=== PATIENT | female | born 1990 | race Caucasian/White ===

== ENCOUNTER 2016-10-14 11:38 | Emergency (ER) | payer SELFPAY ==
[~2016-10-14] VITALS: Ht 165.1 cm; Wt 104.3 kg
[2016-10-14 12:27] LABS: BASO % 0 % (0-3); EOS % 1 % (0-3); HEMATOCRIT 40.4 % (36.0-47.0); HEMOGLOBIN 13.7 g/dL (12.0-15.5); LYMPH # 1.3 x10^3/uL (1.0-4.8); LYMPH % 14 % (24-48); MEAN CORPUSCULAR HEMOGLOBIN 31 pg (25-35); MEAN CORPUSCULAR HGB CONC 34 g/dL (31-37); MEAN CORPUSCULAR VOLUME 92 fL (79-100); MONO % 5 % (0-9); NEUT % 80 % (31-73); PLATELET COUNT 271 x10^3/uL (140-400); RED CELL DISTRIBUTION WIDTH 13.6 % (11.5-14.5); WHITE BLOOD COUNT 9.7 x10^3/uL (4.0-11.0)
[2016-10-14] MEDS ORDERED: CONTRAST GIVEN MC PRN (12:30)
[2016-10-14] MEDS ORDERED: ONDANSETRON PF 4 MG/2 ML VIAL. IV ONE (12:30)
[2016-10-14] MEDS ORDERED: diphenhydrAMINE 50 MG/ML VIAL IVP ONE (12:30)
[2016-10-14] MEDS ORDERED: IOHEXOL 300 MG/ML 75 ML VIAL IV ONE (12:30)
[2016-10-14] MEDS ORDERED: IV NORMAL SALINE 500ML BAG 500 ML IV ONE (12:30)
[2016-10-14] MEDS ORDERED: KETOROLAC TROMETHAMINE 30 MG/ML INJ. IV ONE (12:30)
--- NOTE | 2016-10-14 12:33 | PHYS DOC ---
Past Medical History Past Medical History: No Pertinent History Past Surgical History: Cholecystectomy, Other Additional Past Surgical Histo: R ANKLE, R KNEE Alcohol Use: None Drug Use: None Adult General Chief Complaint Chief Complaint: HEADACHE HPI HPI Patient is a 26 year old female who presents with one-day history of sore throat and neck swelling with mild headache gradual onset not worst of life, some bilateral ear pain dry cough. Reports history of thyroid problem but doesn' t know specifics. Denies dental pain. Able to speak normally and swallow secretions normally. Review of Systems Review of Systems Constitutional: Denies fever or chills [] Eyes: Denies change in visual acuity, redness, or eye pain [] HENT: Denies nasal congestion or sore throat [] Respiratory: Denies cough or shortness of breath [] Cardiovascular: No additional information not addressed in HPI [] GI: Denies abdominal pain, nausea, vomiting, bloody stools or diarrhea [] : Denies dysuria or hematuria [] Musculoskeletal: Denies back pain or joint pain [] Integument: Denies rash or skin lesions [] Neurologic: Denies headache, focal weakness or sensory changes [] Endocrine: Denies polyuria or polydipsia [] Current Medications Current Medications Current Medications Medications (Trade) Dose Ordered Sig/Gui Start Time Stop Time Status Last Admin Dose Admin Diphenhydramine HCl (Benadryl) 25 mg 1X ONCE 10/14/16 12:30 10/14/16 12:31 DC 10/14/16 12:35 25 MG Info (Do NOT chart on this entry -- for MONITORING) 1 each PRN DAILY PRN 10/14/16 12:30 10/14/16 15:10 DC Iohexol (Omnipaque 300 Mg/ml) 75 ml 1X ONCE 10/14/16 12:30 10/14/16 12:31 DC 10/14/16 13:00 75 ML Ketorolac Tromethamine (Toradol) 30 mg 1X ONCE 10/14/16 12:30 10/14/16 12:31 DC 10/14/16 12:35 30 MG Ondansetron HCl (Zofran) 4 mg 1X ONCE 10/14/16 12:30 10/14/16 12:31 DC 10/14/16 12:34 4 MG Sodium Chloride 500 ml @ 500 mls/hr 1X ONCE 10/14/16 12:30 10/14/16 13:29 DC 10/14/16 12:35 500 MLS/HR Allergies Allergies Allergies Coded Allergies Type Severity Reaction Last Updated Verified codeine Allergy Unknown Hives 10/14/16 Yes Physical Exam Physical Exam Constitutional: Well developed, well nourished, no acute distress, non-toxic appearance. [] HENT: Normocephalic, atraumatic, bilateral external ears normal, oropharynx moist, no oral exudates but with tonsillar hypertrophy, nose normal. [] Eyes: PERRLA, EOMI, conjunctiva normal, no discharge. [] Neck: Normal range of motion, no tenderness, supple, no stridor. Difficult to assess for swelling due to the patient's morbid obesity. Questionable lymphadenopathy in the right anterior neck questionable thyromegaly. Trachea is midline. [] Cardiovascular:Heart rate regular rhythm, no murmur [] Lungs & Thorax: Bilateral breath sounds clear to auscultation [] Abdomen: Bowel sounds normal, soft, no tenderness, no masses, no pulsatile masses. [] Skin: Warm, dry, no erythema, no rash. [] Back: No tenderness, no CVA tenderness. [] Extremities: No tenderness, no cyanosis, no clubbing, ROM intact, no edema. [] Neurologic: Alert and oriented X 3, normal motor function, normal sensory function, no focal deficits noted. [] Psychologic: Affect normal, judgement normal, mood normal. [] Current Patient Data Vital Signs Vital Signs Date Time Temp Pulse Resp B/P (MAP) Pulse Ox O2 Delivery O2 Flow Rate FiO2 10/14/16 14:56 60 16 107/57 (74) 98 Room Air 10/14/16 11:52 98.3 98.3 Lab Values Laboratory Tests Test 10/14/16 11:02 10/14/16 12:10 10/14/16 12:30 10/14/16 12:46 POC Urine HCG, Qualitative Hcg negative (Negative) White Blood Count 9.7 x10^3/uL (4.0-11.0) Red Blood Count 4.40 x10^6/uL (3.50-5.40) Hemoglobin 13.7 g/dL (12.0-15.5) Hematocrit 40.4 % (36.0-47.0) Mean Corpuscular Volume 92 fL (79-100) Mean Corpuscular Hemoglobin 31 pg (25-35) Mean Corpuscular Hemoglobin Concent 34 g/dL (31-37) Red Cell Distribution Width 13.6 % (11.5-14.5) Platelet Count 271 x10^3/uL (140-400) Neutrophils (%) (Auto) 80 % (31-73) H Lymphocytes (%) (Auto) 14 % (24-48) L Monocytes (%) (Auto) 5 % (0-9) Eosinophils (%) (Auto) 1 % (0-3) Basophils (%) (Auto) 0 % (0-3) Neutrophils # (Auto) 7.8 x10^3uL (1.8-7.7) H Lymphocytes # (Auto) 1.3 x10^3/uL (1.0-4.8) Monocytes # (Auto) 0.5 x10^3/uL (0.0-1.1) Eosinophils # (Auto) 0.1 x10^3/uL (0.0-0.7) Basophils # (Auto) 0.0 x10^3/uL (0.0-0.2) Thyroid Stimulating Hormone (TSH) 1.752 uIU/mL (0.358-3.74) Group A Streptococcus Rapid Negative (NEGATIVE) POC Hemoglobin 13.3 g/dL (12-15) POC Hematocrit 39 % (36-40) POC Sodium 142 mmol/L (135-145) POC Potassium 4.0 mmol/L (3.5-5.0) POC Chloride 105 mmol/L (98-110) POC Total CO2 24 mmol/L (23-32) Anion Gap 18 mmol/L (6-14) H POC Blood Urea Nitrogen 4 mg/dL (8-26) L POC Creatinine 0.7 mg/dL (0.5-1.4) Glucose Level 88 mg/dL (70-99) POC Ionized Calcium (Verónica) 1.09 mmol/L (1.13-1.32) L Laboratory Tests 10/14/16 12:10 Laboratory Tests 10/14/16 12:46 EKG EKG [] Radiology/Procedures Radiology/Procedures CT neck with contrast does report reviewed no acute abnormality that was a finding of the cerebellum that I discussed with the patient and family that they report is chronic due to previous head trauma years ago. Course & Med Decision Making Course & Med Decision Making Pertinent Labs and Imaging studies reviewed. (See chart for details) The patient is in no distress. We will image the neck to exclude any significant pathology check a strep screen and some basic labs and treat symptomatically. Patient improved with symptomatic treatment labs were reviewed and CT test results were discussed in detail with the patient and the father. She is comfortable going home. Likely this is a viral syndrome with viral pharyngitis. Dragon Disclaimer Dragon Disclaimer This electronic medical record was generated, in whole or in part, using a voice recognition dictation system. Departure Departure Impression: Primary Impression: Viral pharyngitis Disposition: HOME, SELF-CARE Condition: STABLE Referrals: NO PCP (PCP) MICHELLE PEREZ MD Oct 14, 2016 12:33
--- NOTE | 2016-10-14 13:28 | RAD ---
CT of the neck with contrast, 10/14/2016: History: Neck swelling, pain Multidetector CT imaging was performed following an IV bolus injection of iodinated contrast material. The laryngeal region is unremarkable. No significant airway narrowing is seen. The parotid and submandibular glands are unremarkable. The thyroid gland shows no abnormality. Several small cervical lymph nodes are noted without evidence of pathologic enlargement. The paranasal sinuses are clear. Incidental note is made of a lucency in the posterior inferior aspect of the left cerebellar hemisphere. The lack of mass effect upon the fourth ventricle favors the possibility that this is a chronic finding such as an old infarct, rather than active disease. IMPRESSION: 1. No acute neck abnormality is detected. 2. Left cerebellar lucency as described above. MR scanning, if not already performed elsewhere, may be useful for further evaluation. PQRS Compliance Statement: One or more of the following individualized dose reduction techniques were utilized for this examination: 1. Automated exposure control 2. Adjustment of the mA and/or kV according to patient size 3. Use of iterative reconstruction technique
[2016-10-14 13:53] LABS: NEGATIVE OBC STREP NEG; POSITIVE OBC STREP POS
[2016-10-14 14:56] VITALS: BP 107/57
== END 2016-10-14 15:10 | disposition home or self-care (01) ==
LOC: ER 11:38
DX: J02.8 Acute pharyngitis due to other specified organisms (principal); B97.89 Other viral agents as the cause of diseases classified elsewhere
CPT/HCPCS: 36415; 70491; 80047; 81025; 84443; 85025; 87070; 87880; 96361; 96374; 96375; 99285; J1200; J1885; J2405; J7040; Q9967